=== PATIENT | female | born 1955 | race Two or more races ===

== ENCOUNTER 2024-01-11 06:13 | Day surgery (SDC) | payer OTHER ==
[~2024-01-11 06:13] MED LIST: FARXIGA10 MG PO; LIPITOR40 M1 PO; VERAPAMIL ER120 MG PO
[2024-01-11] MEDS ORDERED: LIDOCAINE HCL 1%/Epi 20ML VIAL IJ ONE (10:27)
[2024-01-11] MEDS ORDERED: METRONIDAZOLE/SODIUM CHLORIDE 500 MG/100 ML PIGGYBACK IV ONE (10:27)
[2024-01-11] MEDS ORDERED: POVIDONE-IODINE 118 ML BOTT TOP ONE (10:27)
[2024-01-11] MEDS ORDERED: CEFTRIAXONE SODIUM 2,000 MG VIAL ONE (10:27)
[2024-01-11] MEDS ORDERED: HEMOSTATIC MATRIX 1 KIT KIT TOP ONE (10:28)
[2024-01-11] MEDS ORDERED: DIBUCAINE 15 GM OINT..GM. TUBE ONE (10:28)
[2024-01-11] MEDS ORDERED: POVIDONE-IODINE 118 ML BOTT TOP SCH (11:15)
[2024-01-11] MEDS ORDERED: METRONIDAZOLE/SODIUM CHLORIDE 500 MG/100 ML PIGGYBACK IV SCH (11:15)
[2024-01-11] MEDS ORDERED: BUPIVACAINE HCL 30 ML VIAL IJ SCH (11:15)
[2024-01-11] MEDS ORDERED: DIBUCAINE 15 GM OINT..GM. TUBE RECTAL SCH (11:15)
[2024-01-11] MEDS ORDERED: CEFTRIAXONE SODIUM 2,000 MG VIAL IV SCH (11:15)
[2024-01-11] MEDS ORDERED: HEMOSTATIC MATRIX 1 KIT KIT TOP SCH (11:15)
[2024-01-11] MEDS ORDERED: LIDOCAINE HCL 1%/Epi 20ML VIAL IJ SCH (11:15)
[2024-01-11] MEDS ORDERED: ONDANSETRON HCL 2 MG/ML VIAL ONE (13:02)
[2024-01-11] MEDS ORDERED: ENALAPRILAT DIHYDRATE 1.25 MG/ML VIAL IV ONE (15:54)
== END 2024-01-11 18:05 | disposition home or self-care (01) ==
LOC: CIR.AMB 06:13
PROVIDERS: ATTEND Colon & Rectal Surgery
DX: K64.2 Third degree hemorrhoids (principal); K64.8 Other hemorrhoids; K64.4 Residual hemorrhoidal skin tags